=== PATIENT | female | born 1935 | race Caucasian/White ===

== ENCOUNTER 2016-08-28 05:51 | Inpatient (IN) | payer OTHER ==
[2016-08-28] MEDS ORDERED: CEFAZOLIN 2 GM/DEXTR 100 ML IV ONE (06:00)
[2016-08-28] MEDS ORDERED: ROPI/epiNEPH/KETOROLAC JOINT COCKTAIL IU ONE (06:00)
[2016-08-28] MEDS ORDERED: ACETAMINOPHEN 325 MG TAB PO ONE (06:00)
[2016-08-28] MEDS ORDERED: CHLORHEXIDINE GLUC HIBICLENS 118 ML BTL TP ONE (06:00)
[2016-08-28] MEDS ORDERED: DEXAMETHASONE 4 MG/ML VIAL IVP ONE (06:00)
[2016-08-28] MEDS ORDERED: FAMOTIDINE 20 MG TAB PO ONE (06:00)
[2016-08-28] MEDS ORDERED: DEXAMETHASONE 4 MG/ML VIAL ONE (06:08)
[2016-08-28] MEDS ORDERED: FAMOTIDINE 20 MG TAB ONE (06:08)
[2016-08-28] MEDS ORDERED: ACETAMINOPHEN 325 MG TAB ONE (06:09)
[2016-08-28] MEDS ORDERED: CEFAZOLIN 2 GM/DEXTROSE/100 ML BAG IV ONE (06:09)
[2016-08-28] MEDS ORDERED: LIDOCAINE 2% 5 ML SDV ONE (06:15)
[2016-08-28] MEDS ORDERED: LIDOCAINE 1% 2 ML INJ ONE (06:16)
[2016-08-28] MEDS ORDERED: SKIN ADHESIVE (DERMABOND) 1 EACH TP ONE (06:37)
[2016-08-28] MEDS ORDERED: CALCIUM CHLORIDE 1 GM/10 ML INJ ONE (06:37)
[2016-08-28] MEDS ORDERED: THROMBIN (RECOMBINANT) 5,000 UNIT VIAL TP ONE (06:37)
[2016-08-28] MEDS ORDERED: ceFAZolin 1 GM/5 ML SYR ONE (06:37)
[2016-08-28] MEDS ORDERED: MIDAZOLAM 2 MG/2 ML VIAL ONE (07:06)
[2016-08-28 07:11] LABS: INR 1.03 (0.83-1.16); PROTIME(PATIENT) 13.4 SEC (12.0-15.0)
[2016-08-28] MEDS ORDERED: PROPOFOL/EMULSION 500 MG/50 ML BOTTLE IV ONE ×2 (07:16→08:48)
[2016-08-28] MEDS ORDERED: LIDOCAINE 2% 100 MG/5 ML SYR ONE (07:16)
[2016-08-28] MEDS ORDERED: fentaNYL 100 MCG/2 ML INJ ONE ×3 (07:16→10:38)
[2016-08-28] MEDS ORDERED: BUPIVACAINE/DEXTROSE 7.5MG/ML 2 ML SPINAL AMP SP ONE (07:17)
[2016-08-28] MEDS ORDERED: PHENYLEPHRINE HCL 100 MCG/ML SYR ONE (09:55)
[2016-08-28] MEDS ORDERED: morphINE *ANESTHESIA ONLY* 10 MG/ML VIAL ONE ×2 (10:13→10:22)
[2016-08-28] MEDS ORDERED: PHARMACY PAIN CONSULT 1 EA MISC PRN (10:37)
[2016-08-28] MEDS ORDERED: diphenhydrAMINE 25 MG CAP PO PRN (10:37)
[2016-08-28] MEDS ORDERED: oxyCODONE IR 5 MG TAB PO PRN (10:37)
[2016-08-28] MEDS ORDERED: MAGNESIUM HYDROXIDE 30 ML UDCUP PO PRN (10:37)
[2016-08-28] MEDS ORDERED: LACTULOSE 20 GM/30 ML UDCUP PO PRN (10:37)
[2016-08-28] MEDS ORDERED: BISACODYL 10 MG SUPP PR PRN (10:37)
[2016-08-28] MEDS ORDERED: POLYETHYLENE GLYCOL 3350 17 GM PKT PO PRN (10:37)
[2016-08-28] MEDS ORDERED: SENNOSIDES/DOCUSATE SODIUM TAB PO PRN (10:37)
[2016-08-28] MEDS ORDERED: PROPRANOLOL HCL 10 MG TAB PO PRN (10:43)
[2016-08-28] MEDS ORDERED: NALOXONE HCL 0.4 MG/ML INJ IVP PRN (10:46)
[2016-08-28] MEDS ORDERED: oxyCODONE IR 5 MG TAB ONE ×2 (10:47→11:45)
--- NOTE | 2016-08-28 10:50 | POSTOPPROG ---
Post Op Note Date of Operation: 08/28/16 Surgeon: Janet Burnham Sieve Maker: Fuentes Vela PA-C, Jeannette Malloy PA-C Anesthesiologist: Dr. Ni Anesthesia: Spinal Pre-op Diagnosis: right knee osteoarthritis Post-op Diagnosis: right knee osteoarthritis Indication: knee pain, severe arthritis Procedure: right TKA Inf/Abcess present in the surg proc area at time of surgery?: No EBL: 50-100 Complications: none
--- NOTE | 2016-08-28 10:51 | SOAPPROG ---
SOAP Progress Note Assessment/Plan: Assessment/Plan: 81 y/0 female s/p right TKA - to floor when PACU criteria met - meds as ordered - re-start Warfarin tomorrow morning - TEDs/SCDs - ice as ordered - PT/OT - call with issues/concerns 08/28/16 10:50 08/28/16 10:51 Subjective: Knee pain Objective: PT 13.4 SEC (12.0-15.0) 08/28/16 06:40 INR 1.03 (0.83-1.16) 08/28/16 06:40 mild distress due to pain EOMi, face symmetric, awake, alert MAEx4 incision clean, dressed TEDs in place ICD10 Worksheet Patient Problems: Problems Problem Status Onset Hip arthritis Chronic
[2016-08-28] MEDS ORDERED: LR 1,000 ML IV SCH (11:00)
[2016-08-28] MEDS: ceFAZolin 2 GM/DEXTROSE 100 ML IV SCH ×2 (11:00→15:25)
[2016-08-28] MEDS: ACETAMINOPHEN 325 MG TAB PO SCH ×3 (12:51→23:56)
[2016-08-28] MEDS: FLECAINIDE ACETATE 100 MG TAB PO SCH (19:55)
--- NOTE | 2016-08-28 20:25 | GOP ---
[f rep st] OPERATIVE REPORT DATE OF OPERATION: 08/28/2016 SURGEON: Janet Burnham MD PURCHASING SUPERVISOR: 1. Dev Vela PA-C. 2. Jeannette Malloy PA-C. ANESTHESIA: Spinal with sedation. PREOPERATIVE DIAGNOSIS: Severe osteoarthritis, right knee. POSTOPERATIVE DIAGNOSIS: Severe osteoarthritis, right knee. PROCEDURE PERFORMED: Right total knee arthroplasty. FINDINGS: Preoperative x-rays of the patient's right knee demonstrated severe osteoarthritis with a varus deformity. The patient had bone loss in the medial tibial plateau. At the time of surgery, these findings were confirmed. The patient had severe tricompartmental arthritis which was most pro nounced in the medial compartment. At the time of surgery a Hernandez and Nephew Journey II total knee arthroplasty was performed. A size 4 femoral component was cemented into place and a size 3 tibial base plate was utilized. This was also cemented into place. The 9 mm thick cross-linked polyethyle ne Journey II insert was used in the metal backing. A 32 mm round patellar component was also utili zed. Following implantation of the components, the knee was taken through a range of motion and ach ieved full extension, as well as 130 degrees of flexion. The patient had excellent stability with v arus and valgus stressing, both in extension and flexion. ESTIMATED BLOOD LOSS: Less than 100 cc. DESCRIPTION OF PROCEDURE: The patient was taken to the operating room, placed in the supine positio n on the operating table. Following induction of adequate spinal anesthesia, the right leg and knee were prepped and draped in the usual sterile manner. The patient received 2 g of IV Ancef. The le g was elevated and exsanguinated and the tourniquet inflated to 300 mmHg. The DeMayo leg campos was used throughout the procedure for positioning. A midline incision was made extending from 2 finger breadths above the superior pole of the patella distally to the tibial tubercle. The incision was c arried down through the subcutaneous tissue to the retinaculum of the knee. A medial parapatellar a rthrotomy was then performed and the patella was everted laterally. The patellar thickness was zulay ured and then a 9 mm cut was taken from the patella. The patella was placed in the lateral gutter a nd our attention was turned back to the knee itself. The knee was flexed and the distal femoral dri ll hole was made. Intramedullary referencing was utilized for the distal femoral cut. The distal f emoral cutting jig was positioned and pinned and then a +2 cut was taken from the distal femur. The patient did have a pre-existing flexion contracture. The femoral cutting guide was then placed on the distal femur and pinned and the femur was sized. A size 4 was felt to be the best fit, so the s ize 4 cutting block was placed on the distal femur and the anterior, posterior, and chamfer cuts wer e made. The cutting block was removed and the trial was placed back on the distal femur. An excell ent fit was obtained. The notch was then cleared with the reamer and the box osteotome. The trial component was removed and our attention was turned to the tibia. Again, intramedullary referencing was utilized. The tibial cutting block was positioned and pinned in proper alignment. The tibial c ut was made. Due to significant bone loss on the medial side and contracture of the medial collater al ligament, the knee was still quite tight on the medial side. A partial release was performed on the soft tissues medially. An initial 4 mm bone cut was made. The lollipop was then used with a 9 mm insert both in flexion and extension and the flexion and extension gaps were symmetrical. The ti jose r was sized and a size 3 tibial component was chosen. It was pinned into place and the keel punch was utilized. A trial reduction was performed with all of the components, including the 9 mm thick polyethylene. The patient had excellent range of motion and good stability. The patella was then prepared. It was sized and drilled and a 32 mm trial component was placed on the patella. Again, t he knee was taken through range of motion. The patella tracked well. All the trial components were removed and the bony surfaces were thoroughly irrigated. They were dried and the cement was mixed. The tibial component was cemented into place first and excess cement was removed from around the e dges of the components using small elevators. The femoral component was cemented next, followed by the patella. The knee was brought into extension while the cement hardened. All excess cement was removed from around the edges of the components. Once the cement was hardened, the knee was flexed up and the trial polyethylene was removed and the 9 mm thick polyethylene was inserted. The wound w as thoroughly irrigated out and a joint cocktail was injected in the soft tissues around the knee. The retinaculum of the knee was closed in a lohzeb-al-zdixs fashion using #2 FiberWire. The subcuta neous tissues were closed using 2-0 Vicryl and the skin was closed using juice. Sterile dressings were applied. Platelet gel was used in the deep and superficial portions of the wound to enhance w ound healing. The patient tolerated the procedure well and there were no complications. Estimated blood loss was minimal. Final sponge and needle counts were correct. The patient was transferred t o the recovery room in good condition. /[id number]/MODL
[2016-08-29 05:03] LABS: HEMATOCRIT 30.5 % (38.0-47.0); HEMOGLOBIN 10.3 g/dL (12.6-16.3)
[2016-08-29] MEDS: ACETAMINOPHEN 325 MG TAB PO SCH ×2 (05:07→12:10)
[2016-08-29] MEDS ORDERED: LEVOTHYROXINE 125 MCG TAB PO SCH (07:00)
[2016-08-29] MEDS ORDERED: CALCIUM CARB W/VIT D 500 MG TAB PO SCH ×2 (09:00→10:00)
[2016-08-29] MEDS ORDERED: [UNRECOGNIZED DRUG - OTHER] PO SCH (09:00)
[2016-08-29] MEDS ORDERED: CALCIUM CARBONATE PO SCH (09:00)
[2016-08-29] MEDS ORDERED: VITAMIN D3 PO SCH (09:00)
[2016-08-29] MEDS: FLECAINIDE ACETATE 100 MG TAB PO SCH (09:32)
[2016-08-29] MEDS ORDERED: CYCLOBENZAPRINE 10 MG TAB PO PRN (12:46)
--- NOTE | 2016-08-29 12:46 | SOAPPROG ---
SOAP Progress Note Assessment/Plan: Assessment/Plan: 81 y/0 female post-op day #1 s/p right TKA - doing great, minimal pain - doing well with PT - slight O2 requirement, asymptomatic, uses O2 at night at home. will continue at [facility] as ordered - re-start Warfarin today - TEDs/SCDs - ice as ordered - to [facility] today, call with issues/concerns 08/29/16 12:46 Subjective: Feeling great, minimal pain. Eating, drinking, voiding. Worked with PT. Pleased with progress Objective: Vital Signs Temp Pulse Resp BP Pulse Ox 36.6 C 79 14 90/40 L 95 08/29/16 11:19 08/29/16 11:19 08/29/16 11:19 08/29/16 11:19 08/29/16 11:19 Laboratory Results 08/29/16 04:46 08/28/16 08/29/16 08/30/16 05:59 05:59 05:59 Intake Total 1720 Output Total 1475 Balance 245 PT 13.4 SEC (12.0-15.0) 08/28/16 06:40 INR 1.03 (0.83-1.16) 08/28/16 06:40 NAD, well appearing, no distress EOMi, face symmetric MAEx4 right knee full extension, flexion to 90 incision CDI, no erythema or active drainage ICD10 Worksheet Patient Problems: Problems Problem Status Onset Chronic Disease [facility]/Transitional Care Acute Hip arthritis Chronic
--- NOTE | 2016-08-29 12:55 | PDIAF ---
- Diagnosis Diagnosis: right knee osteoarthritis Code Status: Full Code - Medication Management Discharge Medications: Medications to Continue on Transfer Calcium Carbonate/Vitamin D3 [Calcium 500 + Vit D Caplet] 1 tab PO DAILY [Last Taken 08/21/16] Herbals/Supplements -Info Only 1 each PO AD 03/25/13 [Last Taken 08/21/16] Levothyroxine [Synthroid 125 mcg (*)] 125 mcg PO DAILY@07 03/25/13 [Last Taken 08/27/16] Multivitamins [Multivitamin (*)] 1 tab PO DAILY 03/25/13 [Last Taken 08/21/16] [place]-3 Fatty Acids/Fish Oil [Fish Oil 1,000 mg Capsule] 1,000 mg PO BID [Last Taken 08/21/16] celeCOXIB [CeleBREX] 100 mg PO BID 06/29/14 [Last Taken 08/28/16 06:49] Warfarin Sodium [Coumadin 5MG (*)] 5 mg PO DAILY 10/21/14 [Last Taken 08/21/16] Flecainide Acetate 50 mg PO BID 08/07/16 [Last Taken 08/27/16 18:00] Propranolol HCl [Inderal 10mg (*)] 10 mg PO DAILY PRN 08/07/16 [Last Taken Unknown] Acetaminophen [Tylenol 325mg (*)] 650 mg PO Q6HRS #0 tab 08/29/16 [Last Taken Unknown] Alendronate Sodium [Fosamax 70 MG (*)] 70 mg PO SA@0700 #0 tab 08/29/16 [Last Taken Unknown] Cyclobenzaprine [Flexeril 10 MG (*)] 5 mg PO TID PRN #0 tab 08/29/16 [Last Taken Unknown] Polyethylene Glycol 3350 [Miralax 17 gm (*)] 17 gm PO DAILY PRN #0 pkt 08/29/16 [Last Taken Unknown] Sennosides/Docusate Sodium [Senokot-S] 1 - 2 tab PO BID PRN #0 tab 08/29/16 [ Last Taken Unknown] diphenhydrAMINE [Benadryl 25 MG (*)] 25 mg PO Q4HRS PRN #0 cap 08/29/16 [Last Taken Unknown] oxyCODONE IR [Oxycodone Ir (*)] 5 - 10 mg PO Q3HRS PRN #0 tab 08/29/16 [Last Taken Unknown] Discharge Medications: Refer to the Discharge Home Medication list for PRN reason. PICC Care - Routine: N/A - Orders Services needed: Registered Nurse, Physical Therapy, Occupational Therapy Oxygen: titrate to >90 Diet Recommendation: no restrictions on diet Diet Texture: Regular Texture Diet Wound Care Instructions: keep incision clean and dry. dressing reinforcement/ replacement as needed if saturated. continue ANTELMO hose bilaterally Sutures/[place] Site: will remove at Dr. Burnham's office at follow-up appointment Activity/Weight Bearing Restrictions: no flexion beyond 90 degrees for first 2 weeks Equipment: walker to use with ambulation at all times - Follow Up Care Current Providers and Referrals: LINCOLN LONG [Primary Care Provider] -
[2016-08-29 15:40] VITALS: BP 114/53; PULSE 76; RESP 18; TEMP 97.9; O2SAT 96
[2016-08-29] MEDS ORDERED: WARFARIN SODIUM 5 MG TAB PO SCH (16:00)
[2016-09-02] MEDS ORDERED: ALENDRONATE SODIUM 70 MG TAB PO SCH (07:00)
== END 2016-08-29 17:03 | DRG 470 ==
LOC: F3N 05:51
PROVIDERS: ADMIT Orthopaedic Surgery; ATTEND Orthopaedic Surgery
PROC: 0SRC0J9 Replacement of Right Knee Joint with Synthetic Substitute, Cemented, Open Approach (ICD-10-PCS; principal; 2016-08-28 07:15)
DX: M17.11 Unilateral primary osteoarthritis, right knee (principal); I48.91 Unspecified atrial fibrillation
CPT/HCPCS: 97110-GP; 97116-GP; 97161-GP; 97165-GO; 97530-GP; C1713; G8978-GP-CJ; G8979-GP-CI; G8987-GO-CI; G8988-GO-CI; G8989-GO-CI; J0171; J0690; J1100; J1885; J2001; J2250; J2370; J2704; J2795; J3010

== ENCOUNTER → 2017-01-24 | Outpatient (CLI) | payer OTHER | LOC: FIMAGING 13:40 | PROVIDERS: ATTEND Family Medicine | DX: Z12.31 Encounter for screening mammogram for malignant neoplasm of breast (principal) | CPT/HCPCS: G0202 ==

== ENCOUNTER 2018-08-20 02:59 | Inpatient (IN) | payer OTHER ==
--- NOTE | 2018-08-20 03:09 | EDPHY ---
H & P Time Seen by Provider: 08/20/18 03:05 HPI/ROS: Chief Complaint: Syncope, head injury, back injury HPI: 83-year-old woman presenting after a fall off the toilet. Patient states that for the last few hours she has been having multiple episodes of nausea vomiting and diarrhea at the same time. She has recent exposure to a child diagnosed with possible norovirus. Patient was sitting on the toilet getting rated check her blood pressure when she lost consciousness. She is found on the floor was between toilet a wall. She is on Coumadin for atrial fibrillation. Last INR was checked 2 weeks ago. Complaining some mild right temporal headache and pain in her right flank. No central chest pain shortness of breath. No palpitations. ROS: 10 systems were reviewed and were negative except those elements noted in the HPI. PMH: Atrial fibrillation on Coumadin Social History: No smoking, no alcohol, no recreational drug use Family History: non-contributory Physical Exam: Gen: Awake, Alert, Airway Intact HEENT: Head: Tenderness in the right tenriism, no deformity, no ecchymosis Eyes: PERRLA, EOMI Ears: No hemotympanum Nose: No epistaxis Mouth: Normal dentition, Airway patent Face: No deformity Neck: non-tender, no stepoff, Full ROM without pain Chest: non-tender, lungs CTA, patient has tenderness in the right posterior 10th and 11th ribs without deformity or ecchymosis. Heart: normal heart tones Abd: soft, non-tender, atraumatic Pelvis: non-tender, stable to AP and Lateral compression Back: atraumatic, no midline tenderness Ext: atramatic, full ROM Skin: no rash Neuro: CN II-XII intact, Strength 5/5 in all extremities, sensation intact in all extremities - Personal History Tetanus Vaccine Date: < 10 years - Medical/Surgical History Hx Asthma: No Hx Chronic Respiratory Disease: Yes Hx Diabetes: No Hx Cardiac Disease: Yes Hx Renal Disease: No Hx Cirrhosis: No Hx Alcoholism: No Hx HIV/AIDS: No Hx Splenectomy or Spleen Trauma: No Other PMH: PMH-Hypothyroidism, arthritis, AFIB. PSH- orthopedic surgeries, Lumpectomy, thyroidectomy (r/t cancer), L TKA(2006), Breast Biopsy bilateraly, L HIP - Social History Smoking Status: Former smoker Constitutional: Initial Vital Signs Temperature (C) 36.6 C 08/20/18 03:09 Heart Rate 75 08/20/18 03:09 Respiratory Rate 20 08/20/18 03:09 Blood Pressure 96/42 L 08/20/18 03:09 O2 Sat (%) 96 08/20/18 03:09 O2 Delivery Mode Room Air Allergies/Adverse Reactions: promethazine HCl [From Phenergan] Allergy (Verified 04/14/13 12:29) unarousable Home Medications: Medication Instructions Recorded Calcium Carbonate/Vitamin D3 1 tab PO DAILY 03/25/13 [Calcium 500 + Vit D Caplet] Levothyroxine [Synthroid 125 mcg 125 mcg PO DAILY@07 03/25/13 (*)] Multivitamins [Multivitamin (*)] 1 tab PO DAILY 03/25/13 [place]-3 Fatty Acids/Fish Oil [Fish 1,000 mg PO BID 03/25/13 Oil 1,000 mg Capsule] celeCOXIB [CeleBREX] 100 mg PO BID 06/29/14 Warfarin Sodium [Coumadin 5MG (*)] 5 mg PO MOTH 10/21/14 Flecainide Acetate 50 mg PO BID 08/07/16 Propranolol HCl [Inderal 10mg (*)] 10 mg PO DAILY PRN 08/07/16 Alendronate Sodium [Fosamax 70 MG 70 mg PO SA@0700 #0 tab 08/29/16 (*)] Acetaminophen [Tylenol 325mg (*)] 650 mg PO BID 08/20/18 Warfarin Sodium [Coumadin 7.5MG 7.5 mg PO SUTUWEFRSA 08/20/18 (*)] Medical Decision Making - Diagnostics Imaging Results: CT scan of the head shows no acute intracranial process. CT scan of the cervical spine shows a mildly widened appearance of C6 on 7 disc space possibly related to degenerative disease Both studies interpreted by , direct Radiology ED Course/Re-evaluation: 83-year-old woman had a syncopal episode and fell off the toilet with likely vasovagal syncope. She has a contusion on her forehead. Some pain in her right posterior back. Chest x-ray is negative. CT scan head cervical spine are unremarkable. Patient is dehydrated. I have discussed with Dr. Falcon, hospitalist. She will admit to her service for hydration further evaluation. Patient has no cervical spine tenderness. She has full range of motion without pain. She is clinically cleared from cervical collar by me. This is an 83-year-old woman who arrived as a limited +trauma team activation after a syncopal episode fall from the toilet. CT scans are negative. There is no evidence of acute traumatic injury. The trauma team activation has been stood down by me. Patient will need to be admitted to the hospital secondary to her gastroenteritis in her dehydration with a syncopal event. She does not require admission for any traumatic injury secondary to her fall. I have discussed with Dr. Estevez, hospitalist. She will admit to her service for continued hydration and evaluation. - Data Points Laboratory Results: Laboratory Results 08/20/18 03:00 08/20/18 03:00 Medications Given: Acetaminophen (Tylenol) 650 mg PO Q4HRS PRN PRN Reason: Pain, Mild/Fever, Can Take PO Stop: 02/16/19 05:25 Last Admin: 08/20/18 22:39 Dose: 650 mg Celecoxib (Celebrex) 100 mg PO BID MARTHA Stop: 02/16/19 15:01 Last Admin: 08/20/18 22:16 Dose: 100 mg Flecainide Acetate (Tambocor) 50 mg PO BID MARTHA Stop: 02/16/19 20:59 Last Admin: 08/20/18 22:16 Dose: 50 mg Fdppk-1-Bnyy Ethyl Esters (Fish Oil) 1,000 mg PO BID MARTHA Stop: 02/16/19 20:59 Last Admin: 08/20/18 22:18 Dose: 1,000 mg Warfarin Sodium (Coumadin) 7.5 mg PO SuTuWeFrSa@1600 MARTHA Stop: 02/16/19 15:59 Last Admin: 08/20/18 16:14 Dose: 7.5 mg Discontinued Medications Sodium Chloride (Ns) 1,000 mls @ 0 mls/hr IV ONCE ONE; Wide Open PRN Reason: Protocol Stop: 08/20/18 03:23 Last Admin: 08/20/18 03:50 Dose: 1,000 mls Sodium Chloride (Ns) 1,000 mls @ 75 mls/hr IV CONT MARTHA Stop: 08/20/18 19:04 Last Admin: 08/20/18 08:13 Dose: 1,000 mls Point of Care Test Results: Chemistry 08/20/18 03:08 POC Sodium 145 mEq/L mEq/L (135-145) POC Potassium 3.8 mEq/L mEq/L (3.3-5.0) POC Chloride 109 mEq/L mEq/L (97-110) POC Total CO2 21 mEq/L L mEq/L (22-31) POC BUN 32 mg/dL H mg/dL (7-23) POC Creatinine 1.0 mg/dL mg/dL (0.6-1.0) POC Glucose 173 mg/dL H mg/dL (70-100) ISTAT H&H 08/20/18 03:08 POC Hgb 17.3 gm/dL H gm/dL (12.6-16.3) POC Hct 51 % H % (38-47) Departure - Departure Disposition: [facility] Inpatient Acute Clinical Impression: Dehydration, Syncope, Forehead contusion, Back contusion, Vomiting, Diarrhea Condition: Fair
[2018-08-20 03:16] LABS: PLATELET COUNT 250 10^3/uL (150-400)
[2018-08-20] MEDS ORDERED: NS 1,000 ML IV ONE (03:22)
[2018-08-20 03:24] LABS: INR 2.25 (0.83-1.16); PROTIME(PATIENT) 23.8 SEC (12.0-15.0)
[2018-08-20] MEDS ORDERED: ONDANSETRON 4 MG/2 ML VIAL IVP PRN (05:26)
[2018-08-20] MEDS ORDERED: ONDANSETRON DISINTEGRATING 4 MG TAB PO PRN (05:26)
[2018-08-20] MEDS ORDERED: oxyCODONE IR 5 MG TAB PO PRN ×2 (05:34→10:16)
--- NOTE | 2018-08-20 06:46 | GHP ---
[f rep st] HISTORY AND PHYSICAL DATE OF ADMISSION: 08/20/2018 SOURCE: The patient provides history, appears reliable. EMR was reviewed and case discussed with ED provider. CHIEF COMPLAINT: "I passed out". HISTORY OF PRESENT ILLNESS: This is a very pleasant, 83-year-old female with a past medical history significant for paroxysmal atrial fibrillation, on Coumadin, hypothyroidism, thyroid cancer, status p ost partial thyroidectomy, chronic back pain due to osteoarthritis and disk displacement, rotator cuf f, hemochromatosis, who presents to the emergency department today with complaints of a syncopal epis ode. The patient was feeling ill this afternoon and she developed sudden onset nausea, vomiting, madhavi rrhea that was intractable. The patient reports that she was feeling generalized weakness and lighth eadedness. She was sitting on the toilet. She was having both vomiting and diarrhea. She subsequen tly had increasing lightheadedness and thought her blood pressure might be low, so she was trying to check it. However, she subsequently lost consciousness, had a syncopal episode, landing in between t he wall and the toilet on the right side. The patient reports that she has right-sided temporal pain and right mid-to-low back pain, superficial flank pain. She denies any chest pain, palpitations, sh ortness of breath. No fevers or chills. The patient reports that she came to enough to push her but ton and passed out. She subsequently was able to hear the voices of the shared services and outsourcing manager and woke up. She repor ts a positive sick contact of a family friend, who came to visit, who had milder symptoms, but report ed some nausea, vomiting, and loose stools, but no rachid diarrhea. She has no known outbreak at her facility at the [facility]. REVIEW OF SYSTEMS: Ten systems reviewed. Negative, except as noted above. ALLERGIES: No known drug allergies. HOME MEDICATIONS: Not yet updated in the EMR. Preliminary list shows Oxy IR p.r.n., Benadryl, Celeb kristy, Coumadin 5 daily, Senokot, propranolol, MiraLAX, fish oil, multivitamin, levothyroxine, flecaini de, Flexeril, calcium with vitamin D, Fosamax, Tylenol, and several OTC supplements. PAST MEDICAL HISTORY: Significant for hypothyroidism, following partial thyroidectomy for thyroid ca ncer, osteoarthritis, lumbar disk displacement, osteoporosis, paroxysmal atrial fibrillation, on Coum haseeb, spinal stenosis, chronic pain, neuropathy, rotator cuff syndrome, hemochromatosis. PAST SURGICAL HISTORY: Significant for partial thyroidectomy, left total hip arthroplasty, bilateral total knee arthroplasty, epidural L3-4 x2, lumpectomy. FAMILY HISTORY: Mother and father are with a history of severe osteoarthritis. SOCIAL HISTORY: The patient lives with her partner in their apartment at [facility]. She has a remote history of tobacco use in her 20s. She does not utilize any illicit drugs. She drinks occas ional alcohol. CODE STATUS: DNR, DNI. PHYSICAL EXAMINATION: VITAL SIGNS: Upon arrival to the emergency department, blood pressure is 96/4 2, heart rate 75, respiratory rate 20, O2 saturation 96% on room air, temperature 36.6. Vitals curre ntly available, blood pressure 130/64, heart rate 77, respiratory rate 18, O2 saturation 96% on 2 L b y nasal cannula, temperature 36.7. LABORATORY DATA: PTT 23.8, INR is 2.25, PTT is 35.0. Sodium 141, potassium 4.3, chloride 109, CO2 2 0, BUN 36, anion gap 12, creatinine 1.1, baseline is 0.9, GFR 48, glucose 165, calcium is 8.8. Tele at bedside shows normal sinus rhythm in the 70s. IMAGING: Chest image reviewed, report is pending. No acute consolidations. No evidence of fracture on [address] head without negative for any acute intracranial findings. No fractures. Cervical spine without mildly widened appearance of C6-7 disk space, possibly related to degenerative disease. ASSESSMENT AND PLAN: A pleasant, 83-year-old female with a history of paroxysmal atrial fibrillation , on Coumadin, who sustained a syncopal episode at home in the setting of several hours of intractabl e and projectile nausea, vomiting, and diarrhea. 1. Viral gastroenteritis. The patient has not had any additional episodes of vomiting or diarrhea s haroon arrival. We will place an order for Gastroenterology, PCR, but suspicious for norovirus, partic ularly since the patient reports known exposure. Intravenous fluid hydration and isolation precautio ns. Advance diet as tolerated. 2. Syncope, likely vasovagal versus orthostatic as the patient reports she was getting up from the [employer] oilet when this occurred. We will check a set of orthostatic vital signs. Continue with intravenous fluid hydration. Fall precautions. We will monitor the patient on telemetry, but do not suspect an acute cardiac event. 3. Acute kidney injury, prerenal in nature, in the setting of dehydration, nausea, vomiting, and madhavi rrhea. Continue with intravenous fluids. No known history of heart failure, but we will monitor flu id status clinically. 4. Nausea, vomiting, and diarrhea currently have improved. Continue with Zofran p.r.n. 5. Chronic medical issues: Paroxysmal atrial fibrillation, on anticoagulation with Coumadin. Catalina nue the patient's flecainide and propranolol. 6. Hypothyroidism. Resume levothyroxine. 7. Chronic back pain. Continue the patient's Oxy IR as tolerated, Flexeril p.r.n., Tylenol. 8. Polycythemia, patient with a history hemochromatosis, does not require therapeutic phlebotomy. 9. Fluid, electrolytes, nutrition: Continue with intravenous fluids for additional bag. Encourage oral intake. Electrolytes adequate. Replace if needed. Diet as tolerated. 10. Prophylaxis: Sequential compression devices if tolerated. The patient is on Coumadin, therapeu tic. We will continue 5 mg daily. 11. Cor status - do not resuscitate, do not intubate. DISPOSITION: The patient admitted to observation status on the [facility] floor for continued IV fluid hydration and symptom control in the setting of an acute viral illness. /[id number]/MODL
[2018-08-20] MEDS: NS 1,000 ML IV SCH ×2 (07:54→08:13)
[2018-08-20] MEDS: ACETAMINOPHEN 325 MG TAB PO PRN ×3 (08:12→22:39)
--- NOTE | 2018-08-20 08:56 | TRAUMAPNT ---
Trauma Tertiary Progress Note New Findings: No new findings Assessment/Plan: 83yo F s/p fall, syncope event, on anticoagulation. Tertiary survey no acute injuries Pain controlled Hospitalists managing comorbidities PT/OT/ASTRO TECHNICIAN Seen with Dr. Kim. Trauma will sign off. Call if needed S: feeling well this am. no new complaints O: laying in bed, comfortable, NAD NCAT, PER, MMM, no hearing deficits CTAB no increased WOB RRR no peripheral edema FROM BUE and BLE, strength 5/5 Neuro grossly intact Mood and affect normal Objective: Vital Signs Temp Pulse Resp BP Pulse Ox 36.6 C 65 16 112/54 L 94 08/20/18 07:59 08/20/18 06:01 08/20/18 07:59 08/20/18 08:39 08/20/18 07:59 08/19/18 08/20/18 08/21/18 05:59 05:59 05:59 Intake Total 1250 300 Output Total 0 200 Balance 1250 100 PT 23.8 SEC (12.0-15.0) H 08/20/18 03:00 INR 2.25 (0.83-1.16) H 08/20/18 03:00
[2018-08-20] MEDS ORDERED: PROPRANOLOL HCL 10 MG TAB PO PRN (15:01)
--- NOTE | 2018-08-20 15:57 | ASMTCMCOM ---
CM Note CM Note Notes: Pt is a 83 y/o female admitted for syncope, dehydration, vomiting and diarrhea. Pt lives at [facility]. Therapies have been ordered and awaiting recommendations. Needs are TBD at this time. CM to follow. Plan: TBD Date Signed: 08/20/2018 03:54 PM Electronically Signed By:ANDREINA Isbell
[2018-08-20] MEDS: WARFARIN SODIUM 7.5 MG TAB PO SCH (16:14)
--- NOTE | 2018-08-20 19:10 | GCON ---
[f rep st] CONSULTATION DATE OF CONSULTATION: 08/20/2018 CHIEF COMPLAINT: Trauma limited activation. HISTORY OF PRESENT ILLNESS: The patient is an 83-year-old woman with past medical history significant for AFib. She was not feeling well and decided to sit down on the toilet, and the next thing she remembers she was on the floor lying on her right side. She pushed her button and then passed out. She awoke when the EMT was there. She reports having nausea, vomiting, and loose stools. Reports tenderness above R iliac crest PAST MEDICAL HISTORY: Paroxysmal AFib, hypothyroidism, history of thyroid cancer, chronic back pain, and neuropathy. PAST SURGICAL HISTORY: Partial thyroidectomy, left hip replacement, bilateral total knee, back surgery, and lumpectomy. FAMILY HISTORY: History of osteoarthritis. SOCIAL HISTORY: She lives with her partner at [facility]. Drinks occasional alcohol. REVIEW OF SYSTEMS: Currently feeling slightly weak, but no complaints of headaches. She does complain of some pain just above her right iliac crest. PHYSICAL EXAMINATION: VITAL SIGNS: 36.6, 65, 115/58, 16, and 94% on 2 L. GENERAL: A pleasant, well-nourished, well-groomed woman sitting up in bed. HEENT : Normocephalic. No gross hearing deficits. Pupils equal and round. No scleral icterus. Mucous membranes moist. No midface instability.Neck: No cervical spine tenderness. Lungs: Clear to auscultation bilaterally Cardiac: Regular rate. Abdomen Soft and non tender. No ecchymosis or masses MSK: 5/5 strength Neuro: grossly intact Skin warm and lauryn Impression and Plan: 83 year old with afib who had syncopal episode. Fortunately, I do not find any injuries on tertiary exam. Monitor area above right area above iliac crest. Trauma will sign off and be available if needs arise /[id number]/MODL MTDD
[2018-08-20] MEDS: FLECAINIDE ACETATE 100 MG TAB PO SCH ×2 (22:16→22:17)
[2018-08-20] MEDS: OMEGA-3 FATTY ACIDS 1,000 MG CAP PO SCH (22:18)
[2018-08-21 05:23] LABS: INR 2.45 (0.83-1.16); PROTIME(PATIENT) 25.4 SEC (12.0-15.0)
[2018-08-21] MEDS: OMEGA-3 FATTY ACIDS 1,000 MG CAP PO SCH ×2 (07:44→20:09)
[2018-08-21] MEDS: CALCIUM CARB W/VIT D 500 MG TAB PO SCH (07:44)
[2018-08-21] MEDS: FLECAINIDE ACETATE 100 MG TAB PO SCH ×2 (07:44→20:08)
[2018-08-21] MEDS: MULTIVITAMINS 1 EACH TAB PO SCH (07:46)
[2018-08-21] MEDS: LEVOTHYROXINE 125 MCG TAB PO SCH (07:56)
[2018-08-21] MEDS: ACETAMINOPHEN 325 MG TAB PO PRN ×2 (07:57→20:19)
--- NOTE | 2018-08-21 08:22 | HOSPPROG ---
Hospitalist Progress Note Assessment/Plan: #JAYSHREE: resolved #Norovirus: supportive care #Right chest pain: due to fall. Lidoderm patch #Chronic pain: home meds #Hypothyroidism: LT4 #PAF: rate-controlled, INR at goal #Diet: reg #DVt ppx: Coumadin Disp: inpatient admission for pain control, PT. Can DC tomorrow if clinically improved Subjective: right-sided CP persistent. No SOB Objective: Vital Signs Temp Pulse Resp BP Pulse Ox 36.5 C 68 16 122/63 H 97 08/21/18 07:20 08/21/18 07:20 08/21/18 04:00 08/21/18 07:20 08/21/18 07:20 Laboratory Results 08/21/18 04:28 08/20/18 08/21/18 08/22/18 05:59 05:59 05:59 Intake Total 1250 2100 Output Total 0 350 Balance 1250 1750 PT 25.4 SEC (12.0-15.0) H 08/21/18 04:28 INR 2.45 (0.83-1.16) H 08/21/18 04:28 - Time Spent With Patient Time Spent with Patient: greater than 35 minutes Time Spent with Patient: Greater than 35 minutes spent on this patients care, greater than 50% of time spent counseling, educating, and coordinating care regarding the above mentioned plan. - Physical Exam Constitutional: no apparent distress Eyes: PERRL Ears, Nose, Mouth, Throat: moist mucous membranes Cardiovascular: regular rate and rhythym Respiratory: no respiratory distress Gastrointestinal: normoactive bowel sounds Genitourinary: no bladder fullness Musculoskeletal: other (TTP over right chest) Neurologic: AAOx3, CN II-XII Intact Psychiatric: interacting appropriately ICD10 Worksheet Patient Problems: Problems Problem Status Onset Back contusion Acute Dehydration Acute Diarrhea Acute Forehead contusion Acute Syncope Acute Vomiting Acute Chronic Disease Mgmt/Transitional Care Acute Hip arthritis Chronic
[2018-08-21] MEDS: LIDOCAINE 4%/MENTHOL 1% PATCH TD SCH (12:32)
--- NOTE | 2018-08-21 13:28 | CPEKG ---
Test Reason : OPEN Blood Pressure : / mmHG Vent. Rate : 080 BPM Atrial Rate : 080 BPM P-R Int : 188 ms QRS Dur : 088 ms QT Int : 393 ms P-R-T Axes : 065 043 013 degrees QTc Int : 454 ms Sinus rhythm Probable left atrial enlargement Probable anteroseptal infarct, old Confirmed by Gian Bae ([id number]) on 08/21/2018 1:28:31 PM Referred By: Louise Estevez Confirmed By:Gian Bae
--- NOTE | 2018-08-21 14:38 | ASMTCMCOM ---
CM Note CM Note Notes: [facility]. Pt likely to be discharged independently, no other CM needs identified at this time. CM available if needs arise. Plan: Independent Date Signed: 08/21/2018 02:37 PM Electronically Signed By:ANDREINA Holland
[2018-08-21] MEDS: WARFARIN SODIUM 7.5 MG TAB PO SCH (17:07)
--- NOTE | 2018-08-21 19:35 | PDMN ---
Medical Necessity Medical necessity: Change to IP, as of , per MD & MCG [id number]; los >2 mn for ongoing eval/tx s/p syncopal episode w/chest pain & norovirus; requiring further monitoring, orthostatic vital signs, supportive care & therapies; comorbid advanced age, AFIB on AC
[2018-08-21] MEDS: PATCH REMOVAL 1 EA PATCH TD SCH (22:12)
[2018-08-22] MEDS: ACETAMINOPHEN 325 MG TAB PO PRN (05:57)
[2018-08-22 06:05] LABS: INR 2.65 (0.83-1.16); PROTIME(PATIENT) 26.9 SEC (12.0-15.0)
[2018-08-22] MEDS: LIDOCAINE 4%/MENTHOL 1% PATCH TD SCH (08:24)
[2018-08-22] MEDS: OMEGA-3 FATTY ACIDS 1,000 MG CAP PO SCH ×2 (08:25→21:05)
[2018-08-22] MEDS: CALCIUM CARB W/VIT D 500 MG TAB PO SCH (08:26)
[2018-08-22] MEDS: LEVOTHYROXINE 125 MCG TAB PO SCH (08:26)
[2018-08-22] MEDS: MULTIVITAMINS 1 EACH TAB PO SCH (08:26)
[2018-08-22] MEDS: FLECAINIDE ACETATE 100 MG TAB PO SCH ×2 (08:26→21:04)
[2018-08-22] MEDS ORDERED: NS 500 ML IV ONE (11:28)
[2018-08-22] MEDS ORDERED: oxyCODONE IR 5 MG TAB PO PRN (12:39)
[2018-08-22] MEDS: HYDROCODONE/APAP 5/325 TAB PO PRN ×2 (12:58→18:28)
--- NOTE | 2018-08-22 15:20 | ASMTCMCOM ---
CM Note CM Note Notes: CM met with pt and she said that she has arranged to go to [facility] instead of [place]. Pt was cleared by PT and OT. CM submit updates to Wendie at [facility] and left voicemail requesting call back to ensure this is possible. Pt is likely going to be discharged tomorrow. Pt requested to be discharged in the morning because her ride is available then. Plan: [facility] ([place] [facility] [place] Date Signed: 08/22/2018 03:19 PM Electronically Signed By:ANDREINA Holland
[2018-08-22] MEDS ORDERED: BISACODYL 10 MG SUPP PR PRN (15:34)
[2018-08-22] MEDS ORDERED: MAGNESIUM HYDROXIDE 30 ML UDCUP PO PRN (15:34)
[2018-08-22] MEDS ORDERED: LACTULOSE 20 GM/30 ML UDCUP PO PRN (15:34)
--- NOTE | 2018-08-22 15:35 | HOSPPROG ---
Hospitalist Progress Note Assessment/Plan: #JAYSHREE: resolved #Norovirus: supportive care #Right chest pain: persistent. Rib CXR negative. Lidoderm patch. Added [place] -Incentive spirometry #Chronic pain: home meds #Hypothyroidism: LT4 #PAF: rate-controlled, INR at goal #Diet: reg #DVt ppx: Coumadin Disp: inpatient admission for pain control, PT. Can DC tomorrow if clinically improved Subjective: right-sided rib pain persists. No SOB Objective: Vital Signs Temp Pulse Resp BP Pulse Ox 36.7 C 68 20 126/65 H 93 08/22/18 12:00 08/22/18 12:00 08/22/18 12:00 08/22/18 12:00 08/22/18 12:00 Laboratory Results 08/22/18 11:40 08/21/18 08/22/18 08/23/18 05:59 05:59 05:59 Intake Total 1050 Output Total 600 Balance 450 PT 26.9 SEC (12.0-15.0) H 08/22/18 04:31 INR 2.65 (0.83-1.16) H 08/22/18 04:31 - Time Spent With Patient Time Spent with Patient: greater than 35 minutes Time Spent with Patient: Greater than 35 minutes spent on this patients care, greater than 50% of time spent counseling, educating, and coordinating care regarding the above mentioned plan. - Physical Exam Constitutional: no apparent distress Eyes: PERRL Ears, Nose, Mouth, Throat: moist mucous membranes Cardiovascular: regular rate and rhythym Respiratory: no respiratory distress, other (TTP right ribs, no hematoma. Mildly decreased BS right base) Gastrointestinal: normoactive bowel sounds, soft, non-tender abdomen, No tenderness Genitourinary: no bladder fullness Skin: warm Musculoskeletal: full muscle strength Neurologic: AAOx3, CN II-XII Intact Psychiatric: interacting appropriately ICD10 Worksheet Patient Problems: Problems Problem Status Onset Back contusion Acute Dehydration Acute Diarrhea Acute Forehead contusion Acute Syncope Acute Vomiting Acute Chronic Disease Mgmt/Transitional Care Acute Hip arthritis Chronic
[2018-08-22] MEDS: POLYETHYLENE GLYCOL 3350 17 GM PKT PO PRN (15:53)
[2018-08-22] MEDS ORDERED: WARFARIN SODIUM 5 MG TAB PO SCH (16:00)
--- NOTE | 2018-08-22 16:06 | ASMTCMCOM ---
CM Note CM Note Notes: Spoke with Wendie at [facility] and they can accept pt in the SNF. [facility] tomorrow. Pt arranged transportation for 10:30am. Date Signed: 08/22/2018 04:06 PM Electronically Signed By:ANDREINA Holland
[2018-08-22] MEDS: SENNOSIDES/DOCUSATE SODIUM TAB PO SCH (21:05)
[2018-08-22] MEDS: PATCH REMOVAL 1 EA PATCH TD SCH (21:10)
[2018-08-23] MEDS: HYDROCODONE/APAP 5/325 TAB PO PRN ×2 (02:22→08:38)
[2018-08-23 05:40] LABS: INR 3.55 (0.83-1.16); PROTIME(PATIENT) 33.7 SEC (12.0-15.0)
[2018-08-23 07:45] VITALS: BP 136/55
[2018-08-23] MEDS: SENNOSIDES/DOCUSATE SODIUM TAB PO SCH (08:06)
[2018-08-23] MEDS: OMEGA-3 FATTY ACIDS 1,000 MG CAP PO SCH (08:07)
[2018-08-23] MEDS: FLECAINIDE ACETATE 100 MG TAB PO SCH (08:07)
[2018-08-23] MEDS: CALCIUM CARB W/VIT D 500 MG TAB PO SCH (08:08)
[2018-08-23] MEDS: MULTIVITAMINS 1 EACH TAB PO SCH (08:09)
[2018-08-23] MEDS: POLYETHYLENE GLYCOL 3350 17 GM PKT PO PRN (08:38)
[2018-08-23] MEDS: LIDOCAINE 4%/MENTHOL 1% PATCH TD SCH (08:43)
[2018-08-23] MEDS: LEVOTHYROXINE 125 MCG TAB PO SCH (08:43)
--- NOTE | 2018-08-23 12:58 | GDS ---
[f rep st] DISCHARGE SUMMARY DISCHARGE DIAGNOSES: 1. Acute kidney injury. 2. Norovirus. 3. Right chest pain. 4. Chronic pain. 5. Hypothyroidism. 6. Paroxysmal atrial fibrillation, on Coumadin. 7. Thyroid cancer. 8. Chronic back pain. 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 Was positive for norovirus. HOSPITAL COURSE BY PROBLEM: 1. Norovirus. Supportive care. Symptoms have improved. 2. Mechanical fall: Was wedged between the toilet and wall. Subsequent right-sided chest pain, neg ative for rib fractures. Pain improved with low-dose [place]. Incentive spirometry. 3. Chronic pain. Home medications. 4. Hypothyroidism. Levothyroxine. 5. Paroxysmal atrial fibrillation. She is rate controlled. INR is 3.55 today. Advised patient to hold this weekend and repeat INR through [facility] on Sunday. DISPOSITION: Patient is stable for discharge to [facility]. PHYSICAL EXAMINATION: VITAL SIGNS: Today, temperature 36.5, blood pressure 136/65, heart rate 60, r espirations 16, 93% on room air. GENERAL: She is well appearing, smiling, sitting up, eating. HEEN T: PERRLA. Moist mucous membranes. CV: Regular rate and rhythm. LUNGS: Clear. ABDOMEN: Soft, nontender, nondistended. Positive bowel sounds. : No Peng. MUSCULOSKELETAL: 5/5 upper and low er extremity strength. NEURO: 2 through 12 intact. PSYCH: Alert and oriented x3. FOLLOWUP: INR Sunday with [facility]. MEDICATIONS: Hold Coumadin until INR check on Sunday. /[id number]/MODL
--- NOTE | 2018-08-23 14:08 | ASDISCHSUM ---
Discharge Information Plan Status:Home with No Needs Medically Cleared to Leave:08/22/2018 Discharge Date:08/22/2018 CM D/C Disposition:Home, Routine, Self-Care ADT D/C Disposition: Projected Discharge Date:08/22/2018 11:00 AM Transportation at D/C:Friend Discharge Delay Reason: Follow-Up Date:08/22/2018 11:00 AM Discharge Slot: Final Diagnosis:norovirus Placement Information Referral Type:*Long-Term/SNF Referral ID:[id number] Provider Name: Address 1: Phone Number: Address 2: Fax Number: City: Selection Factors: State: Patient Contact Information Contact Name:JOSE Relationship:Life Partner Address:[address] [place] [address] City:[place] Alternate Phone: [facility]/Zip Code:[place] [address] Email: Financial Information Financial Class:Medicare Primary Plan Desc:MEDICARE INPATIENT Primary Plan Number:[id number] Secondary Plan Desc:[facility] Secondary Plan Number:[id number] Assessment Information LACE LACE Length of stay for Answers: 2 days current admission Acuity / Level of Answers: Yes Care: Did the patient have an inpatient admission? Comorbidities - select Answers: Opioid dependence all that apply / Chronic pain Other Notes: AFib; Hypothyroid, Thyr oid CA # of Emergency department Answers: 1-2 visits in the last 6 months Score: 11 Date Signed: 08/23/2018 02:07 PM Electronically Signed By:Joselyn Adam [facility] CM Progress Note CM Note CM Note Notes: Pt is a 83 y/o female admitted for syncope, dehydration, vomiting and diarrhea. Pt lives at [facility]. Therapies have been ordered and awaiting recommendations. Needs are TBD at this time. CM to follow. Plan: TBD Date Signed: 08/20/2018 03:54 PM Electronically Signed By:ANDREINA Isbell [facility] CM Progress Note CM Note CM Note Notes: Pt was cleared by PT and OT to go back to [facility] once medically stable. Pt likely to be discharged independently, no other CM needs identified at this time. CM available if needs arise. Plan: Independent Date Signed: 08/21/2018 02:37 PM Electronically Signed By:ANDREINA Holland [facility] CM Progress Note CM Note CM Note Notes: CM met with pt and she said that she has arranged to go to [facility] instead of [place]. Pt was cleared by PT and OT. CM submit updates to Wend[facility] at [facility] to ensure this is possible. Pt is likely going to be discharged tomorrow. Pt requested to be discharged in the morning because her ride is available then. Plan: [facility] vs [place]). Date Signed: 08/22/2018 03:19 PM Electronically Signed By:ANDREINA Holland [facility] CM Progress Note CM Note CM Note Notes: Spoke with Wendie at [facility] and they can accept pt in the SNF. Plan: [facility] tomorrow. Pt arranged transportation for 10:30am. Date Signed: 08/22/2018 04:06 PM Electronically Signed By:ANDREINA Holland Case Management Discharge Plan Note Case Management Discharge Discharge Order Complete? Answers: Yes Patient to Obtain Answers: via Family Medications Transportation Arranged Answers: Family/Friends Transport will Pick (Date 08/23/2018 12:00 AM & Time) Family Notified Answers: Yes Notes: by pt Discharge Comments Notes: Pt to discharge home independently to [facility]. Pt experienced significant return in strength and decrease in pain overnight and is wanting to return home to partner who is on hospice and also has norovirus. CM spoke with pt in the room who was arranging her ride. No further CM needs noted at this time. Date Signed: 08/23/2018 02:05 PM Electronically Signed By:Joselyn Adam Intervention Information Intervention Type:WADE-Signed Date of Service:08/20/2018 01:59 PM Patient Type:Observation Staff Member:Auugstin, Michaelle Hours: Discipline: Severity: Comment:
== END 2018-08-23 13:25 | disposition home or self-care (01) | DRG 392 ==
LOC: EDUNIT# → F3N 05:44 → OBSVTOIN 08-21 14:54
PROVIDERS: ADMIT Family Medicine; ATTEND Internal Medicine
DX: A08.11 Acute gastroenteropathy due to Norwalk agent (principal); E86.0 Dehydration; N17.9 Acute kidney failure, unspecified; R55 Syncope and collapse; S00.83XA Contusion of other part of head, initial encounter; S20.221A Contusion of right back wall of thorax, initial encounter; W18.11XA Fall from or off toilet without subsequent striking against object, initial encounter; Y92.012 Bathroom of single-family (private) house as the place of occurrence of the external cause; Y93.E8 Activity, other personal hygiene; Y99.8 Other external cause status; I48.0 Paroxysmal atrial fibrillation; Z79.01 Long term (current) use of anticoagulants; E03.9 Hypothyroidism, unspecified; M19.91 Primary osteoarthritis, unspecified site; M51.26 Other intervertebral disc displacement, lumbar region; M81.0 Age-related osteoporosis without current pathological fracture; G89.29 Other chronic pain; Z85.850 Personal history of malignant neoplasm of thyroid; Z96.653 Presence of artificial knee joint, bilateral; Z96.642 Presence of left artificial hip joint; Z87.891 Personal history of nicotine dependence
CPT/HCPCS: 82435-PO; 82565-PO; 82947-PO; 84132-PO; 84295-PO; 84520-PO; 85014-ER; 92523-GN; 97116-GP; 97161-GP; 97165-GO; G0378; G0390; J2405